=== PATIENT | female | born 1960 | race Caucasian/White ===

== ENCOUNTER → 2016-11-15 | Day surgery (SDC) | payer OTHER ==
[~2016-11-15] VITALS: Ht 168.9 cm; Wt 68.0 kg
[~2016-11-15] MED LIST: BUPIVACAINE HCL PF 0.5% 30 ML VIAL NERV BLOCK ONE; CAL-150C PO; DEXAMETHASONE SOD PHOS 4 MG/ML VIAL ONE; DEXT 5%-NACL 0.45% 1000 ML INJ 1,000 ML IV SCH; DO NOT ADM ANY ANTICOAGULANT DRUGS XX PRN; FAMOTIDINE 20 MG/2 ML VIAL ONE; IBUP800T23 PO; LACTATED RINGER'S 1000 ML INJ 1,000 ML ONE; MIDAZOLAM HCL 5 MG/ML VIAL (1 ML) ONE; MONT10TA4 PO; NEUR300C PO; NORMOSOL R INJ 1,000 ML IV ONE; ONDANSETRON HCL 4 MG/2 ML VIAL IV PUSH ONE; PERC5TAB12 PO; POVIDONE IODINE 10% OINT 1 PACKET TOP ONE; PROPOFOL 200 MG/20 ML AMP IV ONE; SODIUM CHLORIDE 0.9% FLUSH 5 ML FLUSH IVF PRN; SODIUM CHLORIDE 0.9% FLUSH 5 ML FLUSH IVF SCH; SYMB160A INH; ceFAZolin 2 GM PREMIX 50 ML ONE; fentaNYL CITRATE 250 MCG/5 ML AMP ONE
[2016-11-15 07:34] VITALS: BP 134/64; PULSE 73; RESP 16; TEMP 98; O2SAT 100
[2016-11-15 07:56] LABS: HEMATOCRIT 41.3 % (35.0-46.0); MEAN CELL VOLUME 97.1 FL (80.0-100.0); MEAN CORPUSCULAR HEMOGLOBIN 32.8 PG (27.0-34.0); MEAN CORPUSCULAR HGB CONC 33.8 % (32.0-36.0); PLATELET COUNT 194 TH/MM3 (150-450); RED BLOOD COUNT 4.26 MIL/MM3 (4.00-5.30); RED CELL DISTRIBUTION WIDTH 11.6 % (11.6-17.2); REVIEW FLAG FINAL; WHITE BLOOD COUNT 5.7 TH/MM3 (4.0-11.0)
--- NOTE | 2016-11-15 08:00 | HP.UPD ---
H&P Update Date: Nov 15, 2016 Note The Pre-Admit History and Physical Examination regarding the above named patient was reviewed (including, but not limited to, vital signs, medications, allergies, co-morbid conditions), and upon re-examination it is noted that: Indicated with "X" x - the patient's condition has not significantly changed since the last examination. [] - the patient's condition has changed since the last examination. Changes: Ave Hurst MD Nov 15, 2016 08:00
[2016-11-15 08:10] VITALS: PULSE 75
--- NOTE | 2016-11-15 11:37 | HHI.PR ---
Immediate Post Op Note Procedure Date: Nov 15, 2016 Pre Op Diagnosis: (1) Laceration of long flexor muscle, fascia and tendon of right thumb at wrist and hand level, sequela (2) Abnormal scarring of skin Post Op Diagnosis: (1) Laceration of long flexor muscle, fascia and tendon of right thumb at wrist and hand level, sequela (2) Abnormal scarring of skin Surgeon: Ave Hurst MD Bicycle Repairer(s): Lester Brooks PA-C Procedure: 1. Reconstruction of A2 dung of the right thumb with tendon graft from right palmaris longus. 2. Tenolysis, right thumb. 3. Multiple z-plasties, right thumb. Complications: n/a Specimen(s) removed: n/a Estimated blood loss: n/a Anesthesia: General Drains: None Tourniquet time (min at mmHg) 94 minutes at 210mmHg Patient to: PACU Patient Condition: Good Date/Time of Procedure: SEE SURGICAL CARE RECORD Yuliet Brooks Nov 15, 2016 11:37
[2016-11-15 12:50] VITALS: BP 134/58; PULSE 86; RESP 20; TEMP 98.1; O2SAT 98
--- NOTE | 2016-11-15 21:45 | EKG ---
Date Performed: 11/15/2016 Time Performed: 08:06:38 PTAGE: 56 years EKG: Sinus rhythm . Normal ECG NO PREVIOUS TRACING DOCTOR: Jasper Glover Interpretating Date/Time 11/15/2016 21:43:58
--- NOTE | 2016-11-17 12:45 | MP ---
cc: MEGAN HURST M.D. DATE OF SURGERY: 11/15/2016 PREOPERATIVE DIAGNOSIS 1. Loss of A2 dung, right thumb, from trauma. 2. Contracture of skin from trauma, right thumb. POSTOPERATIVE DIAGNOSIS: 1. Loss of A2 dung, right thumb, from trauma. 2. Contracture of skin from trauma, right thumb. PROCEDURE: 1. Tenolysis flexor pollicis longus, right thumb. 2. Multiple Z-plasties to the skin of the right thumb. 3. Reconstruction of the A2 dung of the right thumb using a palmaris longus free tendon graft. ANESTHESIA General SURGEON Dr. Hurst AUTOMOBILE SALES CONSULTANT: Lester Brooks PA-C INDICATIONS: The patient is a 56 year-old female who had an injury many years ago to her right thumb. The patient did have flexion to her thumb but she did have a contracture of the skin and she did not have full excrsion. Workup revealed the presence of an intact flexor pollicis longus but on examination, loss of the A2 dung. FINDINGS The findings did correlate with the preoperative exam completely. There was a significant amount of scarring of the tendon to surrounding structures. In addition, there was no evidence of an A2 dung. At the completion of the procedure, the scar contracture had been released. The A2 dung reconstructed with a free palmaris longus graft and the scar contracture treated with multiple Z-plasties. TOURNIQUET TIME: 93 minutes. DESCRIPTION OF PROCEDURE: The patient was seen preoperatively where the site and side identified and marked. The patient was then taken to the operating room, placed in supine position. Her identity was checked against the arm band and the consent form, site and side confirmed, time-out called prior to beginning the procedure. The right upper extremity was prepped with Hibiclens and draped in the usual sterile fashion. The area to be incised was outlined with a marking pen as a longitudinal incision over the scar measuring approximately 3 cm in length, multiple Z-plasties were designed with the limbs 1 cm in length. In addition the distal edge of the palmaris longus at the wrist was identified and a transverse incision was designed over this as well as another one approximately 9 cm proximal to this. The arm was exsanguinated and the tourniquet inflated to 210 mmHg. A #15 blade was used to make an incision over the thumb, down through the skin, down through the subcutaneous tissue. Flaps were elevated and raised. The area was investigated. The flaps of the Z-plasty were cut in order to allow better access to the tendon. The tendon was scarred at the surrounding structures. Under loupe magnification the tendon was carefully from surrounding structures. There was no evidence of any A2 dung or remnant of the A2 dung but there were stitches that were buried within the tendon which was intact. Tenolysis was performed to free it up all the way proximally to the tunnel of the tendon sheath and all the way distally to its insertion into the distal phalanx. Once the tendon was free and the limbs had been cut for the Z-plasty, a new 15 blade was used to make an incision in the wrist at the most distal portion of the palmaris longus. Incision was made down through the skin, down through the subcutaneous tissue and the palmaris longus was isolated. Another incision was made 9 cm proximal to this. A stitch was placed in the proximal end. The tendon was divided and it was passed through using a tendon passer. Distally just prior to harvest of the tendon graft, another stitch of 3-0 Ethibond was placed for better handling of the graft. It was then from its attachment distally. Attention was then turned to the thumb where a tunnel was made dorsally between the extensor tendon and the bone. A separate incision was made dorsally in order to allow for passage of the graft. A clamp was placed dorsally and the suture which had been placed in the end of the tendon was passed into the suture and then from the other side a similar clamp was passed and care was taken to ensure that the tendon graft was beneath the extensor tendon. Excellent gliding was noted. The tendon was then weaved into itself under proper tension using a special Dieter Pulido clamp. Once it was weaved several times and proper tension was placed, it was sought upon itself using 3-0 Ethibond suture material. The sutures that were gently placed initially were removed. The tendon was rotated to allow a nice clean unsutured area to be covering the area for the A2 dung. The tendon was then fixed to local tissues and excellent gliding was noted. The wound was then copiously irrigated with saline and the area of the thumb on the palmar side was closed with interrupted and running 5-0 nylon suture after transposing the flaps of the Z-plasty dorsally as well as the harvest of the palmaris longus were closed with Dermabond. Once the glue had dried in several layers Steri-Strips were applied. Once all the wounds were closed and the glue had dried, pressure was applied. The tourniquet was released after 93 minutes of tourniquet time. Povidone-iodine ointment was applied to the sutures on the palmar aspect of the thumb after several minutes and a dry dressing was applied using Adaptic, Telfa, fluffy gauze, hand wrap and a thumb spica splint. The patient was then taken from the operating room to the recovery room in satisfactory condition having tolerated the procedure well. Postoperative instructions include keeping the arm elevated, keeping it clean and dry, and returning in several days for follow up. The patient was given a prescription for Percocet and ibuprofen. MD TISH Flowers/LUIS /11:42 AM /12:18 PM
== END | disposition home or self-care (01) ==
LOC: PHSDC 06:50
PROVIDERS: ATTEND Specialist
DX: S66.02 Laceration of long flexor muscle, fascia and tendon of thumb at wrist and hand level (principal); J45.909 Unspecified asthma, uncomplicated; E78.5 Hyperlipidemia, unspecified; F17.200 Nicotine dependence, unspecified, uncomplicated; Z01.810 Encounter for preprocedural cardiovascular examination
CPT/HCPCS: 01810; 14040; 26502; 36415; 64415; 85027; 93005; J0690; J1100; J2250; J2405; J3010; J7120; L3808